=== PATIENT | female | born 1970 | race Caucasian/White ===

== ENCOUNTER 2025-09-15 11:33 | Observation (INO) | payer OTHER ==
--- NOTE | 2025-09-15 12:02 | ERPHSYRPT ---
- History of Present Illness Physician History: Hurts all over, onset of symptoms yesterday, she has difficulty in getting comfortable, she states she developed some cramping in her extremities when she gets that stretch out then she develops more cramping, she did have some recent changes in her diuretic, they apparently upped her dose and the also Added supplemental potassium, She is taking the diuretic because of edema, she has no history of any congestive heart failure, she denies any known history of any kidney problems, she does have a known history of COPD Severity: moderate Modifying Factors: Improves With: movement Allergies/Adverse Reactions: No Known Drug Allergies Allergy (Unverified 09/15/25 11:49) Home Medications: Furosemide 40 mg [Lasix 40 MG] 40 mg PO DAILY 09/15/25 [History] Insulin Lispro [Insulin Lispro Kwikpen U-100] See Rx Instructions .ROUTE .COMPLEX 09/15/25 [History] Losartan Potassium 50 mg [Cozaar 50 MG] 100 mg PO DAILY 09/15/25 [History] Metformin HCl 500 mg [Glucophage 500 MG] 500 mg PO TID 09/15/25 [History] Metoprolol Succinate 50 mg [Toprol Xl 50 MG] 50 mg PO HS 09/15/25 [History] Potassium Chloride [Klor-Con M20] 20 meq PO DAILY 09/15/25 [History] - Nursing Vital Signs Nursing Vital Signs: Initial Vital Signs Temperature 97.7 F 09/15/25 11:34 Pulse Rate 117 H 09/15/25 11:34 Respiratory Rate 24 09/15/25 11:34 Blood Pressure 120/72 09/15/25 11:34 O2 Sat by Pulse Oximetry 96 09/15/25 11:34 Pain Scale Pain Intensity [Generalized] 10 Pain Intensity 5 - Physical Exam General Appearance: no apparent distress, obese Eye Exam: PERRL/EOMI, eyes nml inspection Ears, Nose, Throat Exam: normal ENT inspection, TMs normal, pharynx normal, moist mucous membranes Neck Exam: normal inspection, non-tender, supple, full range of motion Respiratory Exam: normal breath sounds, lungs clear, No respiratory distress Cardiovascular Exam: regular rate/rhythm, normal heart sounds, normal peripheral pulses Gastrointestinal/Abdomen Exam: soft, normal bowel sounds, No tenderness, No mass Back Exam: normal inspection, normal range of motion, No CVA tenderness, No vertebral tenderness Extremity Exam: normal inspection, normal range of motion, pelvis stable Neurologic Exam: alert, oriented x 3, cooperative, normal mood/affect, nml cerebellar function, nml station & gait, sensation nml, No motor deficits Skin Exam: normal color, warm, dry, No rash Lymphatic Exam: No adenopathy Ordered Tests: Active Orders 24 hr Category Date Time Status Negative Turner STAT Care 09/15/25 12:02 Active IV Insertion STAT Care 09/15/25 12:01 Completed ABDOMEN AND PELVIS W/0 CONTRAS [CT] Stat Exams 09/15/25 13:56 Completed CHEST 1 VIEW (PORTABLE) Stat Exams 09/15/25 12:02 Taken CBC W DIFF Stat Lab 09/15/25 12:00 Completed CMP Stat Lab 09/15/25 12:00 Completed Lactic Acid Stat Lab 09/15/25 12:01 Completed MAGNESIUM Stat Lab 09/15/25 12:00 Completed NT PRO BNPII Stat Lab 09/15/25 12:00 Completed TROPONIN Q4H Lab 09/15/25 12:00 Completed TROPONIN Q4H Lab 09/15/25 18:00 Ordered TROPONIN Q4H Lab 09/15/25 22:00 Ordered UA W/RFX UR CULTURE Stat Lab 09/15/25 13:58 Ordered Medication Summary Discontinued Medications Generic Name Dose Route Start Last Admin Trade Name Freq PRN Reason Stop Dose Admin Sodium Chloride 500 mls @ 500 mls/hr 09/15/25 14:00 09/15/25 15:15 Sodium Chloride 0.9% 500 Ml IV 09/15/25 14:59 500 mls/hr .Q1H ONE Infusion Sodium Chloride Confirm 09/15/25 14:05 Sodium Chloride 0.9% 500 Ml Administered 09/15/25 14:06 Dose 500 mls @ ud IV .STK-MED ONE Morphine Sulfate 4 mg 09/15/25 12:19 09/15/25 12:24 Morphine Sulfate 4 Mg/Ml Injection IV 09/15/25 12:20 4 mg STAT ONE Administration Morphine Sulfate Confirm 09/15/25 12:24 Morphine Sulfate 4 Mg/Ml Injection Administered 09/15/25 12:25 Dose 4 mg .ROUTE .STK-MED ONE Ondansetron HCl 4 mg 09/15/25 12:20 09/15/25 12:24 Ondansetron Hcl 4 Mg/2 Ml Vial IV 09/15/25 12:21 4 mg STAT ONE Administration Ondansetron HCl Confirm 09/15/25 12:23 Ondansetron Hcl 4 Mg/2 Ml Vial Administered 09/15/25 12:24 Dose 4 mg .ROUTE .STK-MED ONE Lab/Rad Data: Laboratory Result Diagrams 09/15/25 12:00 09/15/25 12:00 Laboratory Results 09/15/25 09/15/25 09/15/25 Range/Units 14:13 12:01 12:00 WBC (3.98-10.04) x10^3/uL RBC (3.93-5.22) x10^6/uL Hgb (11.2-15.7) g/dL Hct (34.1-44.9) % MCV (79.4-94.8) fL MCH (25.6-32.2) pg MCHC (32.2-35.5) g/dL RDW (11.7-14.4) % Plt Count (182-369) x10^3/uL MPV (9.4-12.3) fL Gran % (34.0-71.1) % Immature Gran % (Auto) (0.001-0.429) % Nucleat RBC Rel Count (0.00-0.2) % Eos # (Auto) (0.04-0.36) x10^3/uL Immature Gran # (Auto) (0.001-0.031) x10^3u/L Absolute Lymphs (auto) (1.18-3.74) x10^3/uL Absolute Monos (auto) (0.24-0.86) x10^3/uL Absolute Nucleated RBC (0.00-0.012) x10^3u/L Lymphocytes % (19.3-51.7) % Monocytes % (4.7-12.5) % Eosinophils % (0.7-5.8) % Basophils % (0.1-1.2) % Absolute Granulocytes (1.56-6.13) x10^3/uL Basophils # (0.01-0.08) x10^3/uL Sodium (135-145) mmol/L Potassium (3.5-5.1) mmol/L Chloride (98-107) mmol/L Carbon Dioxide (22-30) mmol/L Anion Gap (5-15) MEQ/L BUN (7-17) mg/dL Creatinine (0.52-1.04) mg/dL Estimated GFR ML/MIN Glucose (74-106) mg/dL Lactic Acid 4.5 H (0.4-2.0) Calcium (8.4-10.2) mg/dL Magnesium (1.6-2.3) mg/dL Total Bilirubin (0.2-1.3) mg/dL AST (14-36) U/L ALT (0-35) U/L Alkaline Phosphatase (38-126) U/L Troponin I 0.028 (0.000-0.033) ng/mL NT-Pro-B Natriuret Pep 569 (<300) pg/mL Serum Total Protein (6.3-8.2) g/dL Albumin (3.5-5.0) g/dL Influenza Type A Ag NEGATIVE (NEGATIVE) Influenza Type B Ag NEGATIVE (NEGATIVE) RSV (PCR) NEGATIVE (NEGATIVE) SARS-CoV-2 (PCR) NEGATIVE (NEGATIVE) 09/15/25 09/15/25 09/15/25 Range/Units 12:00 12:00 12:00 WBC 16.9 H (3.98-10.04) x10^3/uL RBC 5.10 (3.93-5.22) x10^6/uL Hgb 14.1 (11.2-15.7) g/dL Hct 44.9 (34.1-44.9) % MCV 88.0 (79.4-94.8) fL MCH 27.6 (25.6-32.2) pg MCHC 31.4 L (32.2-35.5) g/dL RDW 13.9 (11.7-14.4) % Plt Count 364 (182-369) x10^3/uL MPV 9.9 (9.4-12.3) fL Gran % 73.4 H (34.0-71.1) % Immature Gran % (Auto) 0.9 H (0.001-0.429) % Nucleat RBC Rel Count 0.0 (0.00-0.2) % Eos # (Auto) 0.07 (0.04-0.36) x10^3/uL Immature Gran # (Auto) 0.15 H (0.001-0.031) x10^3u/L Absolute Lymphs (auto) 3.09 (1.18-3.74) x10^3/uL Absolute Monos (auto) 1.12 H (0.24-0.86) x10^3/uL Absolute Nucleated RBC 0.00 (0.00-0.012) x10^3u/L Lymphocytes % 18.2 L (19.3-51.7) % Monocytes % 6.6 (4.7-12.5) % Eosinophils % 0.4 L (0.7-5.8) % Basophils % 0.5 (0.1-1.2) % Absolute Granulocytes 12.42 H (1.56-6.13) x10^3/uL Basophils # 0.09 H (0.01-0.08) x10^3/uL Sodium 132 L (135-145) mmol/L Potassium 5.1 (3.5-5.1) mmol/L Chloride 92 L (98-107) mmol/L Carbon Dioxide 24 (22-30) mmol/L Anion Gap 20.7 H (5-15) MEQ/L BUN 29 H (7-17) mg/dL Creatinine 2.96 H (0.52-1.04) mg/dL Estimated GFR 18.3 ML/MIN Glucose 376 H (74-106) mg/dL Lactic Acid (0.4-2.0) Calcium 9.4 (8.4-10.2) mg/dL Magnesium 1.7 (1.6-2.3) mg/dL Total Bilirubin 0.40 (0.2-1.3) mg/dL AST 77 H (14-36) U/L ALT 45 H (0-35) U/L Alkaline Phosphatase 123 (38-126) U/L Troponin I (0.000-0.033) ng/mL NT-Pro-B Natriuret Pep (<300) pg/mL Serum Total Protein 8.7 H (6.3-8.2) g/dL Albumin 4.4 (3.5-5.0) g/dL Influenza Type A Ag (NEGATIVE) Influenza Type B Ag (NEGATIVE) RSV (PCR) (NEGATIVE) SARS-CoV-2 (PCR) (NEGATIVE) - Progress Progress: unchanged Progress Note: 09/15/25 14:33 Consult to hospitalist, discussed lab results including creatinine, hospitalist requested additional lab studies as well as CT abdomen/pelvis without contrast 09/15/25 15:38 Discussed results with hospitalist, patient be admitted - Departure Departure Disposition: In-patient Admission Clinical Impression: JESSICA (acute kidney injury) Condition: Stable Critical Care Time: No Referrals: JB MONACO [Primary Care Provider, [facility]] - Follow up/PCP as directed
[2025-09-15 12:13] LABS: BASOPHIL % 0.5 % (0.1-1.2); Basophil (Absolute #) 0.09 x10^3/uL (0.01-0.08); Eosinophil (Absolute #) 0.07 x10^3/uL (0.04-0.36); Hematocrit 44.9 % (34.1-44.9); Hemoglobin 14.1 g/dL (11.2-15.7); IMMATURE GRAN # 0.15 x10^3u/L (0.001-0.031); IMMATURE GRAN % 0.9 % (0.001-0.429); Lymphocyte (Absolute #) 3.09 x10^3/uL (1.18-3.74); Mean Corpuscular Hemoglobin 27.6 pg (25.6-32.2); Mean Corpuscular Hgb Concent. 31.4 g/dL (32.2-35.5); Monocyte (Absolute #) 1.12 x10^3/uL (0.24-0.86); NUCLEATED RBC # 0.00 x10^3u/L (0.00-0.012); NUCLEATED RBC % 0.0 % (0.00-0.2); Platelet Count 364 x10^3/uL (182-369); Red Blood Count 5.10 x10^6/uL (3.93-5.22); White Blood Count 16.9 x10^3/uL (3.98-10.04)
[2025-09-15] MEDS ORDERED: Zofran 4 MG/2 ML VIAL ONE (12:23)
[2025-09-15] MEDS: MORPHINE SULFATE 4 MG INJ IV ONE (12:24)
[2025-09-15] MEDS ORDERED: MORPHINE SULFATE 4 MG INJ ONE (12:24)
[2025-09-15] MEDS: Zofran 4 MG/2 ML VIAL IV ONE (12:24)
[2025-09-15 13:09] LABS: Calcium 9.4 mg/dL (8.4-10.2); Carbon Dioxide 24.0 mmol/L (22-30); Creatinine 1 2.96 mg/dL (0.52-1.04); EST GLOMERULAR FILTRATION RATE 18.3 ML/MIN; Glucose 376.0 mg/dL (74-106); Potassium 5.1 mmol/L (3.5-5.1); SGOT/AST 77.0 U/L (14-36); SGPT/ALT 45.0 U/L (0-35); Total Protein 8.7 g/dL (6.3-8.2)
[2025-09-15 14:28] LABS: NT PRO BNPII 569.0 pg/mL (<300); TROPONIN 0.028 ng/mL (0.000-0.033)
[2025-09-15 14:51] LABS: INFLUENZA A NEGATIVE (NEGATIVE); INFLUENZA B NEGATIVE (NEGATIVE); RESPIRATORY SYNCTIAL VIRUS NEGATIVE (NEGATIVE); SARS-CoV-2 Xpert Express NEGATIVE (NEGATIVE)
--- NOTE | 2025-09-15 15:28 | XRAY ---
CLINICAL HISTORY: renal failure COMPARISON: No prior studies available for comparison. TECHNIQUE: CT of the abdomen and pelvis was performed without contrast, using the following protocol: axial images, with reconstructed coronal and sagittal images. One of the following dose reduction techniques was utilized for this exam: automated exposure control, adjustment of the mA and/or kV according to patient size, and use of iterative reconstruction. FINDINGS: Abdomen: Liver: The liver is mildly enlarged, measuring approximately 17.7 cm in its craniocaudal dimension in the midclavicular line, and shows diffuse low density, suggesting steatosis. A subcapsular high-density area seen at segment IV measures about 21 x 22 mm in axial dimensions, which could represent focal fatty sparing that needs T1 in and out of phase MRI correlation. The hepatic biliary ducts are unremarkable. Gallbladder and Biliary System: The gallbladder is surgically removed with a clear operative bed. The common bile duct is normal in caliber without dilation. Pancreas: The pancreatic head, body, and tail are visualized and appear normal in size and density. No pancreatic masses or calcifications are noted. The pancreatic duct is not dilated. Spleen: The spleen is normal in size, shape, and density. No splenic lesions or masses are identified. Appendix: The appendix is normal in size, without timothy-appendiceal fat stranding and without an appendicolith. There is no evidence of appendiceal abscess or perforation. 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 Both kidneys are normal in size (both reaching 10.5 cm at their maximum length), shape, and position. Cortical thickness is within normal limits. No renal calculi or hydronephrosis are noted. The adrenal glands are unremarkable with no evidence of masses or hyperplasia. Pelvis: Urinary Bladder: The urinary bladder is normal in contour and wall thickness. No intraluminal lesions are identified. Uterus: The uterus is normal in size and contour. No masses or abnormal thickening are seen. Ovaries: The ovaries are not well visualized, but no gross abnormalities are noted. Vagina: The vagina is normal in contour and wall thickness. Cervix: There is no evidence of mass or abnormal thickening. Peritoneal and Retroperitoneal Structures: No free fluid or abnormal fluid collections are identified within the abdomen or pelvis. No enlarged lymphadenopathy is noted. Bowel: There is colonic diverticulosis with no signs of inflammation. The visualized bowel loops are normal in caliber and appearance. There is no evidence of bowel obstruction or wall thickening. Bones and Soft Tissues: The pelvic bones and soft tissues are unremarkable. No fractures or abnormal masses are identified. Lower lung cuts: There is a small atelectatic change at the lingula. IMPRESSION: 1. Mild fatty hepatomegaly with an area/patch of high density at segment IV, which could be focal fatty sparing; T1 in and out of phase MRI correlation is recommended. 2. Colonic diverticulosis with no signs of inflammation. Electronically Signed by: Valnetino King MD. (09/15/2025 15:26:02 EDT)
--- NOTE | 2025-09-15 16:34 | PCM.HP ---
<SAMINA PARNELL - Last Filed: 09/15/25 16:29> History of Present Illness - Chief Complaint Chief Complaint: JESSICA Date: 09/15/25 History of Present Illness: is a 55 year old female with a past medical history significant for chronic obstructive pulmonary disease (COPD), hypertension, and type 2 diabetes mellitus, who presented to the emergency department on September 15, 2025, with a two-day history of diffuse muscle cramps and aching involving her hands, legs, and feet. She denies fever, chills, chest pain, shortness of breath, nausea, vomiting, or urinary symptoms. She reports that her loop diuretic (Lasix) dose was recently increased from 20 mg once daily to 20 mg twice daily, and potassium supplementation was added following this change. Her symptoms began shortly after the medication adjustment. She reports taking the diuretic for lower extremity edema, not for heart failure. She has no known history of chronic kidney disease. She smokes approximately one pack of cigarettes per day and denies alcohol or illicit drug use. On presentation, she was afebrile, tachycardic at 117 bpm, and hemodynamically stable. Physical examination revealed 1+ pitting edema of both lower extremities without erythema, tenderness, or asymmetry. Laboratory studies demonstrated leukocytosis (WBC 16.9), hyponatremia with serum sodium reduction in the context of hyperglycemia (glucose 376 mg/dL), and an anion gap of 20.7, consistent with metabolic acidosis. BUN was 29 mg/dL and creatinine elevated to 2.96 mg/dL (baseline unknown), indicating acute kidney injury. Lactic acid was 4.5 mmol/L. AST was 77 U/L, ALT 45 U/L, with total protein 8.7 g/dL. Respiratory viral panel (COVID-19, Influenza A/B, RSV) was negative. CT abdomen and pelvis revealed mild fatty hepatomegaly with a high-density focus in hepatic segment 4, suggestive of focal fatty sparing; MRI with T1 in/out of phase was recommended for correlation. Colonic diverticulosis was noted without evidence of active inflammation. No acute intra-abdominal or infectious process was identified. In the emergency department, the patient received 500 mL of IV fluids, Zofran, and analgesics for symptom relief. She was admitted for management of acute kidney injury, metabolic derangements, and SIRS in the setting of recent diuretic escalation and dehydration. - Review of Systems Constitutional: No Symptoms Eyes: No Symptoms Ears, Nose, & Throat: No Symptoms Respiratory: Wheezing Cardiac: Edema (BLE 1+ Pitting edema) Abdominal/Gastrointestinal: No Symptoms Genitourinary Symptoms: No Symptoms Musculoskeletal: Other (: Reports generalized cramping in hands, legs, and feet. No joint pain, swelling, or focal weakness.) Skin: No Symptoms Neurological: No Symptoms Psychological: No Symptoms Endocrine: No Symptoms Hematologic/Lymphatic: No Symptoms Immunological/Allergic: No Symptoms Medications & Allergies Home Medications: Home Medication List Albuterol Common Canister [Ventolin Common Canister] 2 puff IH Q4HPRN PRN 09/15/25 [History Confirmed 09/15/25] Furosemide 40 mg [Lasix 40 MG] 40 mg PO BID 09/15/25 [History Confirmed 09/15/25] Insulin Lispro [Insulin Lispro Kwikpen U-100] See Rx Instructions .ROUTE .COMPLEX 09/15/25 [History Confirmed 09/15/25] Ipratropium/Albuterol Sulfate [Iprat-Albut 0.5-3(2.5) mg/3 ml] 3 ml IH Q6HPRN PRN 09/15/25 [History Confirmed 09/15/25] Losartan Potassium [Cozaar] 100 mg PO EVENING MEAL 09/15/25 [History Confirmed 09/15/25] Metformin HCl 500 mg [Glucophage 500 MG] 500 mg PO EVENING MEAL 09/15/25 [History Confirmed 09/15/25] Metoprolol Succinate 50 mg [Toprol Xl 50 MG] 50 mg PO HS 09/15/25 [History Confirmed 09/15/25] Potassium Chloride [Klor-Con M20] 20 meq PO BID 09/15/25 [History Confirmed 09/15/25] Allergies/Adverse Reactions: Allergies Allergy/AdvReac Type Severity Reaction Status Date / Time No Known Drug Allergies Allergy Unverified 09/15/25 11:49 - Past Medical History Past Medical History: Yes Cardiac History: Hypertension Respiratory History: COPD Endocrine Medical History: Diabetes Type I - Past Surgical History Past Surgical History: Yes GI Surgical History: Cholecystectomy, Hernia Repair Female Surgical History: Dilation & Curettage, Tubal Ligation Significant Family History: heart disease, cancer, diabetes, hypertension, other (COPD) - Social History Smoking Status: Current every day smoker Exposure to second hand smoke: Yes Alcohol: Rarely Drug Use: none - Social Determinants of Health Will the patient participate in the screening: Yes Do you worry about a steady place to live?: No Do you have any problems with any of the following?: No known problems In the past 12 months,have you had to go without utilities?: No Have you or anyone in your house had to go without enough: No Transportation Issues: No Has anyone in your support network made you feel unsafe?: No - Physical Exam Vital Signs: Vital Signs - 24 hr Temp Pulse Resp BP BP Pulse Ox 09/15/25 16:06 98.1 F 110 H 22 124/56 93 L 09/15/25 15:31 88 110/74 96 09/15/25 15:01 94 L 09/15/25 14:31 65 20 103/57 97 09/15/25 13:58 93 H 14 122/84 99 09/15/25 13:31 99/84 93 L 09/15/25 13:30 94 L 09/15/25 13:20 113 H 20 99/84 93 L 09/15/25 13:10 91 L 09/15/25 13:03 93 L 09/15/25 12:50 93 L 09/15/25 12:40 94 L 09/15/25 12:31 95 09/15/25 12:14 119 H 16 95/71 95 09/15/25 11:34 97.7 F 117 H 24 120/72 96 General Appearance: no apparent distress Neurologic Exam: alert, oriented x 3 Eye Exam: PERRL/EOMI Ears, Nose, Throat Exam: normal ENT inspection Neck Exam: normal inspection Respiratory Exam: wheezing Cardiovascular Exam: regular rate/rhythm, normal heart sounds Gastrointestinal/Abdomen Exam: soft, normal bowel sounds Pelvic Exam: not done Rectal Exam: deferred Back Exam: normal inspection Extremity Exam: normal inspection Skin Exam: normal color Results - Labs Lab/Micro Results: Lab Results-Last 24 Hours 09/15/25 09/15/25 09/15/25 Range/Units 12:00 12:00 12:00 WBC 16.9 H (3.98-10.04) x10^3/uL RBC 5.10 (3.93-5.22) x10^6/uL Hgb 14.1 (11.2-15.7) g/dL Hct 44.9 (34.1-44.9) % MCV 88.0 (79.4-94.8) fL MCH 27.6 (25.6-32.2) pg MCHC 31.4 L (32.2-35.5) g/dL RDW 13.9 (11.7-14.4) % Plt Count 364 (182-369) x10^3/uL MPV 9.9 (9.4-12.3) fL Gran % 73.4 H (34.0-71.1) % Immature Gran % (Auto) 0.9 H (0.001-0.429) % Nucleat RBC Rel Count 0.0 (0.00-0.2) % Eos # (Auto) 0.07 (0.04-0.36) x10^3/uL Immature Gran # (Auto) 0.15 H (0.001-0.031) x10^3u/L Absolute Lymphs (auto) 3.09 (1.18-3.74) x10^3/uL Absolute Monos (auto) 1.12 H (0.24-0.86) x10^3/uL Absolute Nucleated RBC 0.00 (0.00-0.012) x10^3u/L Lymphocytes % 18.2 L (19.3-51.7) % Monocytes % 6.6 (4.7-12.5) % Eosinophils % 0.4 L (0.7-5.8) % Basophils % 0.5 (0.1-1.2) % Absolute Granulocytes 12.42 H (1.56-6.13) x10^3/uL Basophils # 0.09 H (0.01-0.08) x10^3/uL Sodium 132 L (135-145) mmol/L Potassium 5.1 (3.5-5.1) mmol/L Chloride 92 L (98-107) mmol/L Carbon Dioxide 24 (22-30) mmol/L Anion Gap 20.7 H (5-15) MEQ/L BUN 29 H (7-17) mg/dL Creatinine 2.96 H (0.52-1.04) mg/dL Estimated GFR 18.3 ML/MIN Glucose 376 H (74-106) mg/dL Lactic Acid (0.4-2.0) Calcium 9.4 (8.4-10.2) mg/dL Magnesium 1.7 (1.6-2.3) mg/dL Total Bilirubin 0.40 (0.2-1.3) mg/dL AST 77 H (14-36) U/L ALT 45 H (0-35) U/L Alkaline Phosphatase 123 (38-126) U/L Troponin I (0.000-0.033) ng/mL NT-Pro-B Natriuret Pep (<300) pg/mL Serum Total Protein 8.7 H (6.3-8.2) g/dL Albumin 4.4 (3.5-5.0) g/dL Influenza Type A Ag (NEGATIVE) Influenza Type B Ag (NEGATIVE) RSV (PCR) (NEGATIVE) SARS-CoV-2 (PCR) (NEGATIVE) 09/15/25 09/15/25 09/15/25 Range/Units 12:00 12:01 14:13 WBC (3.98-10.04) x10^3/uL RBC (3.93-5.22) x10^6/uL Hgb (11.2-15.7) g/dL Hct (34.1-44.9) % MCV (79.4-94.8) fL MCH (25.6-32.2) pg MCHC (32.2-35.5) g/dL RDW (11.7-14.4) % Plt Count (182-369) x10^3/uL MPV (9.4-12.3) fL Gran % (34.0-71.1) % Immature Gran % (Auto) (0.001-0.429) % Nucleat RBC Rel Count (0.00-0.2) % Eos # (Auto) (0.04-0.36) x10^3/uL Immature Gran # (Auto) (0.001-0.031) x10^3u/L Absolute Lymphs (auto) (1.18-3.74) x10^3/uL Absolute Monos (auto) (0.24-0.86) x10^3/uL Absolute Nucleated RBC (0.00-0.012) x10^3u/L Lymphocytes % (19.3-51.7) % Monocytes % (4.7-12.5) % Eosinophils % (0.7-5.8) % Basophils % (0.1-1.2) % Absolute Granulocytes (1.56-6.13) x10^3/uL Basophils # (0.01-0.08) x10^3/uL Sodium (135-145) mmol/L Potassium (3.5-5.1) mmol/L Chloride (98-107) mmol/L Carbon Dioxide (22-30) mmol/L Anion Gap (5-15) MEQ/L BUN (7-17) mg/dL Creatinine (0.52-1.04) mg/dL Estimated GFR ML/MIN Glucose (74-106) mg/dL Lactic Acid 4.5 H (0.4-2.0) Calcium (8.4-10.2) mg/dL Magnesium (1.6-2.3) mg/dL Total Bilirubin (0.2-1.3) mg/dL AST (14-36) U/L ALT (0-35) U/L Alkaline Phosphatase (38-126) U/L Troponin I 0.028 (0.000-0.033) ng/mL NT-Pro-B Natriuret Pep 569 (<300) pg/mL Serum Total Protein (6.3-8.2) g/dL Albumin (3.5-5.0) g/dL Influenza Type A Ag NEGATIVE (NEGATIVE) Influenza Type B Ag NEGATIVE (NEGATIVE) RSV (PCR) NEGATIVE (NEGATIVE) SARS-CoV-2 (PCR) NEGATIVE (NEGATIVE) - Radiology Impressions Radiology Exams & Impressions: Radiology Procedures Category Date Time Status ABDOMEN AND PELVIS W/0 CONTRAS [CT] Stat Exams 09/15/25 13:56 Completed CHEST 1 VIEW (PORTABLE) Stat Exams 09/15/25 12:02 Taken Assessment/Plan (1) JESSICA (acute kidney injury) Current Visit: Yes Status: Acute Assessment & Plan: likely prerenal due to diuretic-associated volume depletion and dehydration -Hold diuretics and potassium supplementation -500ml fluid bolus given in ED- continue 1L fluid bolus- then 100ml/hr -trend BUN/Cr for improvement -Avoid nephrotoxins and adjust all renally cleared medications -Strict intake/output and daily weights -Consider nephrology consult if no improvement or worsening renal function within 2448 hours Code(s): N17.9 - ACUTE KIDNEY FAILURE, UNSPECIFIED (2) SIRS (systemic inflammatory response syndrome) Current Visit: Yes Status: Acute Assessment & Plan: tachycardia and leukocytosis, likely due to metabolic stress and dehydration rather than infection -Continue IV fluid resuscitation for perfusion support -Monitor vital signs, WBC, and temperature trends -Repeat lactate after resuscitation - received 500ml bolus in ED -No antibiotics at this time unless infection develops -Continue observation for possible progression to sepsis -UDS -UA pending collection -CXR pending final Read -CT abdomen and pelvis revealed mild fatty hepatomegaly with a high-density focu s in hepatic segment 4, suggestive of focal fatty sparing; MRI with T1 in/out of phase was recommended for correlation. Colonic diverticulosis was noted without evidence of active inflammation. No acute intra-abdominal or infectious process was identified. -Blood cultures x 2 -procal Code(s): R65.10 - SIRS OF NON-INFECTIOUS ORIGIN W/O ACUTE ORGAN DYSFUNCTION (3) High anion gap metabolic acidosis Current Visit: Yes Status: Acute Assessment & Plan: -Continue IV fluids and monitor acidbase status -Repeat lactate in 46 hours -Evaluate for ketosis given concurrent hyperglycemia Code(s): E87.29 - OTHER ACIDOSIS (4) Lactic acid acidosis Current Visit: Yes Status: Acute Assessment & Plan: -see above Code(s): E87.20 - ACIDOSIS, UNSPECIFIED (5) Hyponatremia Current Visit: Yes Status: Acute Assessment & Plan: pseudohyponatremia secondary to osmotic shift -IVF and glucose correction -Monitor sodium and glucose closely until normalization Code(s): E87.1 - HYPO-OSMOLALITY AND HYPONATREMIA (6) DMII (diabetes mellitus, type 2) Current Visit: Yes Status: Acute Assessment & Plan: -ADA -SSI -AIC -Hold metformin (7) COPD (chronic obstructive pulmonary disease) Current Visit: Yes Status: Acute Assessment & Plan: -Continue home inhalers (long-acting bronchodilator inhaled corticosteroid) -Encourage pulmonary hygiene and smoking cessation counseling -Monitor oxygen saturation and symptoms during admission -RA at baseline -RT eval -CXR pending (8) Smoker Current Visit: Yes Status: Acute Assessment & Plan: -1PPD smoker, advised cessation- nicotine patch Code(s): F17.200 - NICOTINE DEPENDENCE, UNSPECIFIED, UNCOMPLICATED (9) HTN (hypertension) Current Visit: Yes Status: Acute Assessment & Plan: -Continue home antihypertensive regimen if renal function allows -Hold agents that may worsen JESSICA until stable -Monitor blood pressure daily and reassess once volume status is corrected Code(s): I10 - ESSENTIAL (PRIMARY) HYPERTENSION (10) Transaminitis Current Visit: Yes Status: Acute Assessment & Plan: -Trend AST/ALT and liver function tests -Follow radiology recommendation for MRI with T1 in/out of phase to confirm fatty sparing in hepatic segment 4 as OP -Audio Engineer on avoidance of hepatotoxic agents (alcohol, NSAIDs, excess acetaminophen) -Hepatitis panel Code(s): R74.01 - ELEVATION OF LEVELS OF LIVER TRANSAMINASE LEVELS (11) Fatty liver Current Visit: Yes Status: Acute Assessment & Plan: -see above VTE: lovenox PPI: Protonix Dispo: 1-3 days Plan of care time spent > 45 mins Code(s): K76.0 - FATTY (CHANGE OF) LIVER, NOT ELSEWHERE CLASSIFIED Telemedicine Encounter - Telemedicine Encounter Telemedicine Encounter: "The entirety of this encounter was performed via Telemedicine" This visit was performed using real-time audio and video connection between my location and thepatients locationwith the assistance of a surrogateat the patients location. Written or verbal consent was obtained from the patient/guardian to perform this visit using[facility] technology. Any patient questions regarding the telemedicine interaction were answered. <CHUY JANG - Last Filed: 09/15/25 22:30> History of Present Illness - Chief Complaint History of Present Illness: is a 55 year old female. - Physical Exam Vital Signs: Vital Signs - 24 hr Temp Pulse Resp BP BP Pulse Ox 09/15/25 19:38 97.7 F 103 H 18 123/52 95 09/15/25 17:06 100 H 17 90 L 09/15/25 17:00 98.1 F 100 H 17 124/56 90 L 09/15/25 16:06 98.1 F 110 H 22 124/56 93 L 09/15/25 15:31 88 110/74 96 09/15/25 15:01 94 L 09/15/25 14:31 65 20 103/57 97 09/15/25 13:58 93 H 14 122/84 99 09/15/25 13:31 99/84 93 L 09/15/25 13:30 94 L 09/15/25 13:20 113 H 20 99/84 93 L 09/15/25 13:10 91 L 09/15/25 13:03 93 L 09/15/25 12:50 93 L 09/15/25 12:40 94 L 09/15/25 12:31 95 09/15/25 12:14 119 H 16 95/71 95 09/15/25 11:34 97.7 F 117 H 24 120/72 96 Results - Labs Lab/Micro Results: Lab Results-Last 24 Hours 09/15/25 09/15/25 09/15/25 Range/Units 12:00 12:00 12:00 WBC 16.9 H (3.98-10.04) x10^3/uL RBC 5.10 (3.93-5.22) x10^6/uL Hgb 14.1 (11.2-15.7) g/dL Hct 44.9 (34.1-44.9) % MCV 88.0 (79.4-94.8) fL MCH 27.6 (25.6-32.2) pg MCHC 31.4 L (32.2-35.5) g/dL RDW 13.9 (11.7-14.4) % Plt Count 364 (182-369) x10^3/uL MPV 9.9 (9.4-12.3) fL Gran % 73.4 H (34.0-71.1) % Immature Gran % (Auto) 0.9 H (0.001-0.429) % Nucleat RBC Rel Count 0.0 (0.00-0.2) % Eos # (Auto) 0.07 (0.04-0.36) x10^3/uL Immature Gran # (Auto) 0.15 H (0.001-0.031) x10^3u/L Absolute Lymphs (auto) 3.09 (1.18-3.74) x10^3/uL Absolute Monos (auto) 1.12 H (0.24-0.86) x10^3/uL Absolute Nucleated RBC 0.00 (0.00-0.012) x10^3u/L Lymphocytes % 18.2 L (19.3-51.7) % Monocytes % 6.6 (4.7-12.5) % Eosinophils % 0.4 L (0.7-5.8) % Basophils % 0.5 (0.1-1.2) % Absolute Granulocytes 12.42 H (1.56-6.13) x10^3/uL Basophils # 0.09 H (0.01-0.08) x10^3/uL Sodium 132 L (135-145) mmol/L Potassium 5.1 (3.5-5.1) mmol/L Chloride 92 L (98-107) mmol/L Carbon Dioxide 24 (22-30) mmol/L Anion Gap 20.7 H (5-15) MEQ/L BUN 29 H (7-17) mg/dL Creatinine 2.96 H (0.52-1.04) mg/dL Estimated GFR 18.3 ML/MIN Glucose 376 H (74-106) mg/dL POC Glucometer (74 to 106) mg/dL Hemoglobin A1c (4.5-6.0) % Lactic Acid (0.4-2.0) Calcium 9.4 (8.4-10.2) mg/dL Magnesium 1.7 (1.6-2.3) mg/dL Total Bilirubin 0.40 (0.2-1.3) mg/dL AST 77 H (14-36) U/L ALT 45 H (0-35) U/L Alkaline Phosphatase 123 (38-126) U/L Troponin I (0.000-0.033) ng/mL NT-Pro-B Natriuret Pep (<300) pg/mL Serum Total Protein 8.7 H (6.3-8.2) g/dL Albumin 4.4 (3.5-5.0) g/dL Procalcitonin (0.030-0.080) ng/mL Urine Color (Yellow) Urine Appearance (Clear) Urine pH (4.6-8.0) Ur Specific Lock[place] (1.005-1.030) Urine Protein (Negative) Urine Glucose (UA) (Negative) mg/dL Urine Ketones (Negative) Urine Blood (Negative) Urine Nitrite (Negative) Urine Bilirubin (Negative) Urine Urobilinogen (0.2) mg/dL Ur Leukocyte Esterase (Negative) U Hyaline Cast (Auto) (0-2) /LPF Urine Microscopic RBC (0-5) /HPF Urine Microscopic WBC (0-5) /HPF Ur Epithelial Cells (None Seen) /HPF Urine Bacteria (None Seen) /HPF Urine Culture Reflexed (NO) Urine Opiates Level (NEGATIVE) Ur Methadone (NEGATIVE) Urine Barbiturates (NEGATIVE) Ur Phencyclidine (PCP) (NEGATIVE) Urine Amphetamine (NEGATIVE) U Benzodiazepine Level (NEGATIVE) Urine Cocaine (NEGATIVE) Urine Marijuana (THC) (NEGATIVE) Influenza Type A Ag (NEGATIVE) Influenza Type B Ag (NEGATIVE) RSV (PCR) (NEGATIVE) SARS-CoV-2 (PCR) (NEGATIVE) 09/15/25 09/15/25 09/15/25 Range/Units 12:00 12:01 14:13 WBC (3.98-10.04) x10^3/uL RBC (3.93-5.22) x10^6/uL Hgb (11.2-15.7) g/dL Hct (34.1-44.9) % MCV (79.4-94.8) fL MCH (25.6-32.2) pg MCHC (32.2-35.5) g/dL RDW (11.7-14.4) % Plt Count (182-369) x10^3/uL MPV (9.4-12.3) fL Gran % (34.0-71.1) % Immature Gran % (Auto) (0.001-0.429) % Nucleat RBC Rel Count (0.00-0.2) % Eos # (Auto) (0.04-0.36) x10^3/uL Immature Gran # (Auto) (0.001-0.031) x10^3u/L Absolute Lymphs (auto) (1.18-3.74) x10^3/uL Absolute Monos (auto) (0.24-0.86) x10^3/uL Absolute Nucleated RBC (0.00-0.012) x10^3u/L Lymphocytes % (19.3-51.7) % Monocytes % (4.7-12.5) % Eosinophils % (0.7-5.8) % Basophils % (0.1-1.2) % Absolute Granulocytes (1.56-6.13) x10^3/uL Basophils # (0.01-0.08) x10^3/uL Sodium (135-145) mmol/L Potassium (3.5-5.1) mmol/L Chloride (98-107) mmol/L Carbon Dioxide (22-30) mmol/L Anion Gap (5-15) MEQ/L BUN (7-17) mg/dL Creatinine (0.52-1.04) mg/dL Estimated GFR ML/MIN Glucose (74-106) mg/dL POC Glucometer (74 to 106) mg/dL Hemoglobin A1c (4.5-6.0) % Lactic Acid 4.5 H (0.4-2.0) Calcium (8.4-10.2) mg/dL Magnesium (1.6-2.3) mg/dL Total Bilirubin (0.2-1.3) mg/dL AST (14-36) U/L ALT (0-35) U/L Alkaline Phosphatase (38-126) U/L Troponin I 0.028 (0.000-0.033) ng/mL NT-Pro-B Natriuret Pep 569 (<300) pg/mL Serum Total Protein (6.3-8.2) g/dL Albumin (3.5-5.0) g/dL Procalcitonin (0.030-0.080) ng/mL Urine Color (Yellow) Urine Appearance (Clear) Urine pH (4.6-8.0) Ur Specific [place] (1.005-1.030) Urine Protein (Negative) Urine Glucose (UA) (Negative) mg/dL Urine Ketones (Negative) Urine Blood (Negative) Urine Nitrite (Negative) Urine Bilirubin (Negative) Urine Urobilinogen (0.2) mg/dL Ur Leukocyte Esterase (Negative) U Hyaline Cast (Auto) (0-2) /LPF Urine Microscopic RBC (0-5) /HPF Urine Microscopic WBC (0-5) /HPF Ur Epithelial Cells (None Seen) /HPF Urine Bacteria (None Seen) /HPF Urine Culture Reflexed (NO) Urine Opiates Level (NEGATIVE) Ur Methadone (NEGATIVE) Urine Barbiturates (NEGATIVE) Ur Phencyclidine (PCP) (NEGATIVE) Urine Amphetamine (NEGATIVE) U Benzodiazepine Level (NEGATIVE) Urine Cocaine (NEGATIVE) Urine Marijuana (THC) (NEGATIVE) Influenza Type A Ag NEGATIVE (NEGATIVE) Influenza Type B Ag NEGATIVE (NEGATIVE) RSV (PCR) NEGATIVE (NEGATIVE) SARS-CoV-2 (PCR) NEGATIVE (NEGATIVE) 09/15/25 09/15/25 09/15/25 Range/Units 15:39 16:30 16:49 WBC (3.98-10.04) x10^3/uL RBC (3.93-5.22) x10^6/uL Hgb (11.2-15.7) g/dL Hct (34.1-44.9) % MCV (79.4-94.8) fL MCH (25.6-32.2) pg MCHC (32.2-35.5) g/dL RDW (11.7-14.4) % Plt Count (182-369) x10^3/uL MPV (9.4-12.3) fL Gran % (34.0-71.1) % Immature Gran % (Auto) (0.001-0.429) % Nucleat RBC Rel Count (0.00-0.2) % Eos # (Auto) (0.04-0.36) x10^3/uL Immature Gran # (Auto) (0.001-0.031) x10^3u/L Absolute Lymphs (auto) (1.18-3.74) x10^3/uL Absolute Monos (auto) (0.24-0.86) x10^3/uL Absolute Nucleated RBC (0.00-0.012) x10^3u/L Lymphocytes % (19.3-51.7) % Monocytes % (4.7-12.5) % Eosinophils % (0.7-5.8) % Basophils % (0.1-1.2) % Absolute Granulocytes (1.56-6.13) x10^3/uL Basophils # (0.01-0.08) x10^3/uL Sodium (135-145) mmol/L Potassium (3.5-5.1) mmol/L Chloride (98-107) mmol/L Carbon Dioxide (22-30) mmol/L Anion Gap (5-15) MEQ/L BUN (7-17) mg/dL Creatinine (0.52-1.04) mg/dL Estimated GFR ML/MIN Glucose (74-106) mg/dL POC Glucometer 290 H (74 to 106) mg/dL Hemoglobin A1c (4.5-6.0) % Lactic Acid 2.0 (0.4-2.0) Calcium (8.4-10.2) mg/dL Magnesium (1.6-2.3) mg/dL Total Bilirubin (0.2-1.3) mg/dL AST (14-36) U/L ALT (0-35) U/L Alkaline Phosphatase (38-126) U/L Troponin I (0.000-0.033) ng/mL NT-Pro-B Natriuret Pep (<300) pg/mL Serum Total Protein (6.3-8.2) g/dL Albumin (3.5-5.0) g/dL Procalcitonin (0.030-0.080) ng/mL Urine Color Yellow (Yellow) Urine Appearance Cloudy A (Clear) Urine pH 5.0 (4.6-8.0) Ur Specific [place] 1.010 (1.005-1.030) Urine Protein 30 (Negative) Urine Glucose (UA) Negative (Negative) mg/dL Urine Ketones Negative (Negative) Urine Blood Moderate A (Negative) Urine Nitrite Negative (Negative) Urine Bilirubin Negative (Negative) Urine Urobilinogen 0.2 (0.2) mg/dL Ur Leukocyte Esterase Trace A (Negative) U Hyaline Cast (Auto) 20-50 (0-2) /LPF Urine Microscopic RBC 51-100 A (0-5) /HPF Urine Microscopic WBC 3-5 (0-5) /HPF Ur Epithelial Cells Few (None Seen) /HPF Urine Bacteria None Seen (None Seen) /HPF Urine Culture Reflexed YES (NO) Urine Opiates Level (NEGATIVE) Ur Methadone (NEGATIVE) Urine Barbiturates (NEGATIVE) Ur Phencyclidine (PCP) (NEGATIVE) Urine Amphetamine (NEGATIVE) U Benzodiazepine Level (NEGATIVE) Urine Cocaine (NEGATIVE) Urine Marijuana (THC) (NEGATIVE) Influenza Type A Ag (NEGATIVE) Influenza Type B Ag (NEGATIVE) RSV (PCR) (NEGATIVE) SARS-CoV-2 (PCR) (NEGATIVE) 09/15/25 09/15/25 09/15/25 Range/Units 17:10 17:10 17:10 WBC (3.98-10.04) x10^3/uL RBC (3.93-5.22) x10^6/uL Hgb (11.2-15.7) g/dL Hct (34.1-44.9) % MCV (79.4-94.8) fL MCH (25.6-32.2) pg MCHC (32.2-35.5) g/dL RDW (11.7-14.4) % Plt Count (182-369) x10^3/uL MPV (9.4-12.3) fL Gran % (34.0-71.1) % Immature Gran % (Auto) (0.001-0.429) % Nucleat RBC Rel Count (0.00-0.2) % Eos # (Auto) (0.04-0.36) x10^3/uL Immature Gran # (Auto) (0.001-0.031) x10^3u/L Absolute Lymphs (auto) (1.18-3.74) x10^3/uL Absolute Monos (auto) (0.24-0.86) x10^3/uL Absolute Nucleated RBC (0.00-0.012) x10^3u/L Lymphocytes % (19.3-51.7) % Monocytes % (4.7-12.5) % Eosinophils % (0.7-5.8) % Basophils % (0.1-1.2) % Absolute Granulocytes (1.56-6.13) x10^3/uL Basophils # (0.01-0.08) x10^3/uL Sodium (135-145) mmol/L Potassium (3.5-5.1) mmol/L Chloride (98-107) mmol/L Carbon Dioxide (22-30) mmol/L Anion Gap (5-15) MEQ/L BUN (7-17) mg/dL Creatinine (0.52-1.04) mg/dL Estimated GFR ML/MIN Glucose (74-106) mg/dL POC Glucometer (74 to 106) mg/dL Hemoglobin A1c 9.19 H (4.5-6.0) % Lactic Acid (0.4-2.0) Calcium (8.4-10.2) mg/dL Magnesium (1.6-2.3) mg/dL Total Bilirubin (0.2-1.3) mg/dL AST (14-36) U/L ALT (0-35) U/L Alkaline Phosphatase (38-126) U/L Troponin I 0.024 (0.000-0.033) ng/mL NT-Pro-B Natriuret Pep (<300) pg/mL Serum Total Protein (6.3-8.2) g/dL Albumin (3.5-5.0) g/dL Procalcitonin 0.350 H (0.030-0.080) ng/mL Urine Color (Yellow) Urine Appearance (Clear) Urine pH (4.6-8.0) Ur Specific [place] (1.005-1.030) Urine Protein (Negative) Urine Glucose (UA) (Negative) mg/dL Urine Ketones (Negative) Urine Blood (Negative) Urine Nitrite (Negative) Urine Bilirubin (Negative) Urine Urobilinogen (0.2) mg/dL Ur Leukocyte Esterase (Negative) U Hyaline Cast (Auto) (0-2) /LPF Urine Microscopic RBC (0-5) /HPF Urine Microscopic WBC (0-5) /HPF Ur Epithelial Cells (None Seen) /HPF Urine Bacteria (None Seen) /HPF Urine Culture Reflexed (NO) Urine Opiates Level (NEGATIVE) Ur Methadone (NEGATIVE) Urine Barbiturates (NEGATIVE) Ur Phencyclidine (PCP) (NEGATIVE) Urine Amphetamine (NEGATIVE) U Benzodiazepine Level (NEGATIVE) Urine Cocaine (NEGATIVE) Urine Marijuana (THC) (NEGATIVE) Influenza Type A Ag (NEGATIVE) Influenza Type B Ag (NEGATIVE) RSV (PCR) (NEGATIVE) SARS-CoV-2 (PCR) (NEGATIVE) 09/15/25 09/15/25 09/15/25 Range/Units 19:10 20:43 20:43 WBC (3.98-10.04) x10^3/uL RBC (3.93-5.22) x10^6/uL Hgb (11.2-15.7) g/dL Hct (34.1-44.9) % MCV (79.4-94.8) fL MCH (25.6-32.2) pg MCHC (32.2-35.5) g/dL RDW (11.7-14.4) % Plt Count (182-369) x10^3/uL MPV (9.4-12.3) fL Gran % (34.0-71.1) % Immature Gran % (Auto) (0.001-0.429) % Nucleat RBC Rel Count (0.00-0.2) % Eos # (Auto) (0.04-0.36) x10^3/uL Immature Gran # (Auto) (0.001-0.031) x10^3u/L Absolute Lymphs (auto) (1.18-3.74) x10^3/uL Absolute Monos (auto) (0.24-0.86) x10^3/uL Absolute Nucleated RBC (0.00-0.012) x10^3u/L Lymphocytes % (19.3-51.7) % Monocytes % (4.7-12.5) % Eosinophils % (0.7-5.8) % Basophils % (0.1-1.2) % Absolute Granulocytes (1.56-6.13) x10^3/uL Basophils # (0.01-0.08) x10^3/uL Sodium 130 L (135-145) mmol/L Potassium 4.4 (3.5-5.1) mmol/L Chloride 94 L (98-107) mmol/L Carbon Dioxide 24 (22-30) mmol/L Anion Gap 16.6 H (5-15) MEQ/L BUN 32 H (7-17) mg/dL Creatinine 2.97 H (0.52-1.04) mg/dL Estimated GFR 18.2 ML/MIN Glucose 220 H (74-106) mg/dL POC Glucometer (74 to 106) mg/dL Hemoglobin A1c (4.5-6.0) % Lactic Acid (0.4-2.0) Calcium 8.5 (8.4-10.2) mg/dL Magnesium (1.6-2.3) mg/dL Total Bilirubin 0.40 (0.2-1.3) mg/dL AST 94 H (14-36) U/L ALT 50 H (0-35) U/L Alkaline Phosphatase 109 (38-126) U/L Troponin I 0.014 (0.000-0.033) ng/mL NT-Pro-B Natriuret Pep (<300) pg/mL Serum Total Protein 8.3 H (6.3-8.2) g/dL Albumin 4.2 (3.5-5.0) g/dL Procalcitonin (0.030-0.080) ng/mL Urine Color (Yellow) Urine Appearance (Clear) Urine pH (4.6-8.0) Ur Specific [place] (1.005-1.030) Urine Protein (Negative) Urine Glucose (UA) (Negative) mg/dL Urine Ketones (Negative) Urine Blood (Negative) Urine Nitrite (Negative) Urine Bilirubin (Negative) Urine Urobilinogen (0.2) mg/dL Ur Leukocyte Esterase (Negative) U Hyaline Cast (Auto) (0-2) /LPF Urine Microscopic RBC (0-5) /HPF Urine Microscopic WBC (0-5) /HPF Ur Epithelial Cells (None Seen) /HPF Urine Bacteria (None Seen) /HPF Urine Culture Reflexed (NO) Urine Opiates Level POSITIVE A (NEGATIVE) Ur Methadone NEGATIVE (NEGATIVE) Urine Barbiturates NEGATIVE (NEGATIVE) Ur Phencyclidine (PCP) NEGATIVE (NEGATIVE) Urine Amphetamine POSITIVE A (NEGATIVE) U Benzodiazepine Level NEGATIVE (NEGATIVE) Urine Cocaine NEGATIVE (NEGATIVE) Urine Marijuana (THC) NEGATIVE (NEGATIVE) Influenza Type A Ag (NEGATIVE) Influenza Type B Ag (NEGATIVE) RSV (PCR) (NEGATIVE) SARS-CoV-2 (PCR) (NEGATIVE) Accuchecks Date 09/15/25 Time 16:34 - Radiology Impressions Radiology Exams & Impressions: Radiology Procedures Category Date Time Status ABDOMEN AND PELVIS W/0 CONTRAS [CT] Stat Exams 09/15/25 13:56 Completed CHEST 1 VIEW (PORTABLE) Stat Exams 09/15/25 12:02 Completed ECHO W/2D AND DOPPLER [US] Routine Exams 09/15/25 16:47 Ordered - Other Procedures and Tests Respiratory Therapy 09/15/25 17:02 Respiratory Therapy Assessment DAILY 09/15/25 17:23 Smoking Cessation Education ONCE Telemedicine Encounter - Telemedicine Encounter Telemedicine Encounter: "The entirety of this encounter was performed via Telemedicine" This visit was performed using real-time audio and video connection between my location and thepatients locationwith the assistance of a surrogateat the patients location. Written or verbal consent was obtained from the patient/guardian to perform this visit using[facility] technology. Any patient questions regarding the telemedicine interaction were answered. ANA PAULA Encounter - ANA PAULA Encounter Attestation ANA PAULA Encounter Attestation: "IhavepersonallyseenandyessiDALY Estrada andhavediscussed pertinent aspects of their care with Samina Cunningham agree with the history, physical exam (any modifications based on my personal exam will be noted below), assessment, and plan as outlined in original note. Please see immediately below for my summary of findings and additional assessment and plan along with any meaningful corrections/explanations to the Subjective/Objective portions of the ANA PAULA note will be noted." My portion of the encounter took place via telemedicine. -Patient admitted with JESSICA with creatinine of 2.9 (normal renal function at baseline per patient report), likely related to recent increase in furosemide dosing to 20 mg BID from 20 daily. She denies history of heart failure with a recent normal echo (again, per patient report). There was no obstruction or hydronephrosis seen on the CT. Will challenge with fluids and monitor BMP and urine output. She also has elevated WBC and lactic acidosis but does not appear to have an obvious source of infection. Will cover with empiric ceftriaxone. She complains of severe muscle cramps and while they could be from dehydration, her urine also tested positive for amphetamines.
[2025-09-15] MEDS ORDERED: TYLENOL 325 MG PO PRN (16:48)
[2025-09-15] MEDS ORDERED: Zofran 4 MG/2 ML VIAL IV PRN (16:48)
[2025-09-15] MEDS ORDERED: VENTOLIN COMMON CANISTER IH PRN (16:57)
[2025-09-15] MEDS: HUMALOG SQ PRN (17:49)
[2025-09-15] MEDS: NICODERM CQ 14 MG TOP SCH (17:50)
--- NOTE | 2025-09-15 19:08 | XRAY ---
Indication: Short of breath. Comparison: None Portable chest demonstrates minimal lingula subsegmental atelectasis/scarring. Remaining heart and lungs unremarkable. Bony thorax intact. No acute findings.
[2025-09-15] MEDS: PHARMACY RENAL DOSING MC ONE (19:19)
[2025-09-15 19:27] LABS: Glucose, Urine Negative (Negative); Protein,Urine Dip 30 (Negative); RBC 51-100 /HPF (0-5)
[2025-09-15 19:31] LABS: Barbiturate,Urine NEGATIVE (NEGATIVE); Benzodiazepine,Urine NEGATIVE (NEGATIVE); Cocaine,Urine NEGATIVE (NEGATIVE); Methadone,Urine NEGATIVE (NEGATIVE); Opiate,Urine POSITIVE (NEGATIVE); PCP,Urine NEGATIVE (NEGATIVE); THC,Urine NEGATIVE (NEGATIVE)
[2025-09-15] MEDS: ROCEPHIN 1 GM / 100 ML NaCl 1 GM/100 ML IVPB IV SCH (19:50)
[2025-09-15] MEDS: Cyclobenzaprine 10 MG PO PRN (20:07)
[2025-09-15 20:19] LABS: Amphetamine,Urine POSITIVE (NEGATIVE)
[2025-09-15 21:11] LABS: Calcium 8.5 mg/dL (8.4-10.2); Carbon Dioxide 24.0 mmol/L (22-30); Creatinine 1 2.97 mg/dL (0.52-1.04); EST GLOMERULAR FILTRATION RATE 18.2 ML/MIN; Glucose 220.0 mg/dL (74-106); Potassium 4.4 mmol/L (3.5-5.1); SGOT/AST 94.0 U/L (14-36); SGPT/ALT 50.0 U/L (0-35); Total Protein 8.3 g/dL (6.3-8.2)
[2025-09-15] MEDS: HEPARIN 5000 UNITS/0.5 ML (HIGH RISK MED) SQ SCH (21:22)
[2025-09-15] MEDS: Toprol Xl 50 MG PO SCH (21:22)
[2025-09-15] MEDS ORDERED: NON-FORMULARY ITEM (Potassium Chloride [Klor-Con M20] 20 MEQ Tab.Er.Prt) PO SCH (22:00)
[2025-09-15] MEDS: DUONEB 0.5-3 MG/3 ml Neb IH PRN (23:31)
[2025-09-16 04:56] LABS: BASOPHIL % 0.5 % (0.1-1.2); Basophil (Absolute #) 0.04 x10^3/uL (0.01-0.08); Eosinophil (Absolute #) 0.31 x10^3/uL (0.04-0.36); Hematocrit 38.0 % (34.1-44.9); Hemoglobin 12.2 g/dL (11.2-15.7); IMMATURE GRAN # 0.03 x10^3u/L (0.001-0.031); IMMATURE GRAN % 0.3 % (0.001-0.429); Lymphocyte (Absolute #) 1.56 x10^3/uL (1.18-3.74); Mean Corpuscular Hemoglobin 27.9 pg (25.6-32.2); Mean Corpuscular Hgb Concent. 32.1 g/dL (32.2-35.5); Monocyte (Absolute #) 0.55 x10^3/uL (0.24-0.86); NUCLEATED RBC # 0.00 x10^3u/L (0.00-0.012); NUCLEATED RBC % 0.0 % (0.00-0.2); Platelet Count 283 x10^3/uL (182-369); Red Blood Count 4.38 x10^6/uL (3.93-5.22); White Blood Count 8.6 x10^3/uL (3.98-10.04)
[2025-09-16 05:34] LABS: Calcium 8.1 mg/dL (8.4-10.2); Carbon Dioxide 25.0 mmol/L (22-30); Creatinine 1 2.24 mg/dL (0.52-1.04); EST GLOMERULAR FILTRATION RATE 25.6 ML/MIN; Glucose 247.0 mg/dL (74-106); Potassium 4.3 mmol/L (3.5-5.1); SGOT/AST 85.0 U/L (14-36); SGPT/ALT 46.0 U/L (0-35); Total Protein 7.1 g/dL (6.3-8.2)
[2025-09-16] MEDS ORDERED: DUONEB 0.5-3 MG/3 ml Neb IH ONE (07:07)
[2025-09-16] MEDS ORDERED: Cyclobenzaprine 10 MG PO PRN (07:09)
[2025-09-16] MEDS: DUONEB 0.5-3 MG/3 ml Neb IH PRN (07:09)
[2025-09-16] MEDS ORDERED: PHARMACY DOSING REQUEST MC ONE (07:48)
[2025-09-16] MEDS ORDERED: Pain Relieving Rub TOP PRN (07:58)
[2025-09-16] MEDS: HUMALOG SQ SCH (08:19)
[2025-09-16] MEDS: Lantus Insulin SQ SCH (08:20)
--- NOTE | 2025-09-16 10:21 | PCM.DS ---
Discharge Summary Date of Admission: 09/15/25 16:02 Date of Discharge: 09/16/25 Admitting Physician: CHUY JANG MD Primary Care Provider: JB MONACO Allergies Allergies No Known Drug Allergies Allergy (Unverified 09/15/25 11:49) Hospital Summary - Hospital Course Hospital Course: is a 55-year-old female with a history of COPD, hypertension, and type 2 diabetes mellitus who presented on September 15, 2025, with a two-day history of diffuse muscle cramps and generalized myalgias following a recent increase in her furosemide dose from 20 mg once daily to 20 mg twice daily, along with initiation of potassium supplementation. She denied chest pain, dyspnea, gastrointestinal or urinary symptoms. On admission, she was tachycardic to 117 bpm and found to have an acute kidney injury (creatinine 2.96 mg/dL, baseline unknown), an anion gap metabolic acidosis (AG 20.7), elevated blood glucose (376 mg/dL), lactic acidosis (4.5 mmol/L), and leukocytosis (WBC 16.9). Sodium was low (corrected sodium 131 mmol/L), and A1c was elevated at 9.19%, consistent with poorly controlled diabetes. Imaging with CT abdomen/pelvis revealed fatty hepatomegaly with a high-density area in segment 4, suggestive of focal fatty sparing, for which an outpatient MRI was recommended. No evidence of intra- abdominal pathology or infection was found. She received IV fluids and empiric ceftriaxone for suspected UTI. Urine drug screen returned positive for opiates and amphetamines despite no prescribed use; the patient denied illicit drug use. Over the hospital course, creatinine improved to 2.24, white blood cell count normalized, and her anion gap closed. Liver enzymes showed mild improvement (AST 85, ALT 46), and heart rate returned to normal sinus rhythm in the 90s. Notably, her muscle cramping resolved by the time of discharge. Despite clinical recommendations for continued inpatient monitoring and pending labs including echocardiogram and cultures, the patient strongly insisted on discharge, expressing intent to leave against medical advice (AMA) if not formally discharged. Risks of early discharge were explained, including worsening renal function and need for follow-up of abnormal findings. She verbalized understanding and stated she would follow up with her primary care provider, Dr. Younger in [place], and arrange outpatient care this week. She was discharged home in stable condition with clear instructions to monitor for worsening symptoms and seek immediate medical attention as needed. - Vitals & Intake/Output Vital Signs: Vital Signs Temperature 97.9 F 09/16/25 07:23 Pulse Rate 99 H 09/16/25 07:23 Respiratory Rate 18 09/16/25 07:23 Blood Pressure 127/67 09/16/25 07:23 O2 Sat by Pulse Oximetry 94 L 09/16/25 07:23 Intake & Output: Intake & Output 09/13/25 09/14/25 09/15/25 09/16/25 11:59 11:59 11:59 11:59 Intake Total 4631 Output Total 3475 Balance 1156 Weight 144.242 kg 146.5 kg - Lab Result Diagrams: 09/16/25 04:14 09/16/25 04:14 Lab Results-Last 24 Hrs: Lab Results-Last 24 Hours 09/15/25 09/15/25 09/15/25 Range/Units 12:00 12:00 12:00 WBC 16.9 H (3.98-10.04) x10^3/uL RBC 5.10 (3.93-5.22) x10^6/uL Hgb 14.1 (11.2-15.7) g/dL Hct 44.9 (34.1-44.9) % MCV 88.0 (79.4-94.8) fL MCH 27.6 (25.6-32.2) pg MCHC 31.4 L (32.2-35.5) g/dL RDW 13.9 (11.7-14.4) % Plt Count 364 (182-369) x10^3/uL MPV 9.9 (9.4-12.3) fL Gran % 73.4 H (34.0-71.1) % Immature Gran % (Auto) 0.9 H (0.001-0.429) % Nucleat RBC Rel Count 0.0 (0.00-0.2) % Eos # (Auto) 0.07 (0.04-0.36) x10^3/uL Immature Gran # (Auto) 0.15 H (0.001-0.031) x10^3u/L Absolute Lymphs (auto) 3.09 (1.18-3.74) x10^3/uL Absolute Monos (auto) 1.12 H (0.24-0.86) x10^3/uL Absolute Nucleated RBC 0.00 (0.00-0.012) x10^3u/L Lymphocytes % 18.2 L (19.3-51.7) % Monocytes % 6.6 (4.7-12.5) % Eosinophils % 0.4 L (0.7-5.8) % Basophils % 0.5 (0.1-1.2) % Absolute Granulocytes 12.42 H (1.56-6.13) x10^3/uL Basophils # 0.09 H (0.01-0.08) x10^3/uL Sodium 132 L (135-145) mmol/L Potassium 5.1 (3.5-5.1) mmol/L Chloride 92 L (98-107) mmol/L Carbon Dioxide 24 (22-30) mmol/L Anion Gap 20.7 H (5-15) MEQ/L BUN 29 H (7-17) mg/dL Creatinine 2.96 H (0.52-1.04) mg/dL Estimated GFR 18.3 ML/MIN Glucose 376 H (74-106) mg/dL POC Glucometer (74 to 106) mg/dL Hemoglobin A1c (4.5-6.0) % Lactic Acid (0.4-2.0) Calcium 9.4 (8.4-10.2) mg/dL Magnesium 1.7 (1.6-2.3) mg/dL Total Bilirubin 0.40 (0.2-1.3) mg/dL AST 77 H (14-36) U/L ALT 45 H (0-35) U/L Alkaline Phosphatase 123 (38-126) U/L Troponin I (0.000-0.033) ng/mL NT-Pro-B Natriuret Pep (<300) pg/mL Serum Total Protein 8.7 H (6.3-8.2) g/dL Albumin 4.4 (3.5-5.0) g/dL Procalcitonin (0.030-0.080) ng/mL Urine Color (Yellow) Urine Appearance (Clear) Urine pH (4.6-8.0) Ur Specific [place] (1.005-1.030) Urine Protein (Negative) Urine Glucose (UA) (Negative) mg/dL Urine Ketones (Negative) Urine Blood (Negative) Urine Nitrite (Negative) Urine Bilirubin (Negative) Urine Urobilinogen (0.2) mg/dL Ur Leukocyte Esterase (Negative) U Hyaline Cast (Auto) (0-2) /LPF Urine Microscopic RBC (0-5) /HPF Urine Microscopic WBC (0-5) /HPF Ur Epithelial Cells (None Seen) /HPF Urine Bacteria (None Seen) /HPF Urine Culture Reflexed (NO) Urine Opiates Level (NEGATIVE) Ur Methadone (NEGATIVE) Urine Barbiturates (NEGATIVE) Ur Phencyclidine (PCP) (NEGATIVE) Urine Amphetamine (NEGATIVE) U Benzodiazepine Level (NEGATIVE) Urine Cocaine (NEGATIVE) Urine Marijuana (THC) (NEGATIVE) Influenza Type A Ag (NEGATIVE) Influenza Type B Ag (NEGATIVE) RSV (PCR) (NEGATIVE) SARS-CoV-2 (PCR) (NEGATIVE) 09/15/25 09/15/25 09/15/25 Range/Units 12:00 12:01 14:13 WBC (3.98-10.04) x10^3/uL RBC (3.93-5.22) x10^6/uL Hgb (11.2-15.7) g/dL Hct (34.1-44.9) % MCV (79.4-94.8) fL MCH (25.6-32.2) pg MCHC (32.2-35.5) g/dL RDW (11.7-14.4) % Plt Count (182-369) x10^3/uL MPV (9.4-12.3) fL Gran % (34.0-71.1) % Immature Gran % (Auto) (0.001-0.429) % Nucleat RBC Rel Count (0.00-0.2) % Eos # (Auto) (0.04-0.36) x10^3/uL Immature Gran # (Auto) (0.001-0.031) x10^3u/L Absolute Lymphs (auto) (1.18-3.74) x10^3/uL Absolute Monos (auto) (0.24-0.86) x10^3/uL Absolute Nucleated RBC (0.00-0.012) x10^3u/L Lymphocytes % (19.3-51.7) % Monocytes % (4.7-12.5) % Eosinophils % (0.7-5.8) % Basophils % (0.1-1.2) % Absolute Granulocytes (1.56-6.13) x10^3/uL Basophils # (0.01-0.08) x10^3/uL Sodium (135-145) mmol/L Potassium (3.5-5.1) mmol/L Chloride (98-107) mmol/L Carbon Dioxide (22-30) mmol/L Anion Gap (5-15) MEQ/L BUN (7-17) mg/dL Creatinine (0.52-1.04) mg/dL Estimated GFR ML/MIN Glucose (74-106) mg/dL POC Glucometer (74 to 106) mg/dL Hemoglobin A1c (4.5-6.0) % Lactic Acid 4.5 H (0.4-2.0) Calcium (8.4-10.2) mg/dL Magnesium (1.6-2.3) mg/dL Total Bilirubin (0.2-1.3) mg/dL AST (14-36) U/L ALT (0-35) U/L Alkaline Phosphatase (38-126) U/L Troponin I 0.028 (0.000-0.033) ng/mL NT-Pro-B Natriuret Pep 569 (<300) pg/mL Serum Total Protein (6.3-8.2) g/dL Albumin (3.5-5.0) g/dL Procalcitonin (0.030-0.080) ng/mL Urine Color (Yellow) Urine Appearance (Clear) Urine pH (4.6-8.0) Ur Specific [place] (1.005-1.030) Urine Protein (Negative) Urine Glucose (UA) (Negative) mg/dL Urine Ketones (Negative) Urine Blood (Negative) Urine Nitrite (Negative) Urine Bilirubin (Negative) Urine Urobilinogen (0.2) mg/dL Ur Leukocyte Esterase (Negative) U Hyaline Cast (Auto) (0-2) /LPF Urine Microscopic RBC (0-5) /HPF Urine Microscopic WBC (0-5) /HPF Ur Epithelial Cells (None Seen) /HPF Urine Bacteria (None Seen) /HPF Urine Culture Reflexed (NO) Urine Opiates Level (NEGATIVE) Ur Methadone (NEGATIVE) Urine Barbiturates (NEGATIVE) Ur Phencyclidine (PCP) (NEGATIVE) Urine Amphetamine (NEGATIVE) U Benzodiazepine Level (NEGATIVE) Urine Cocaine (NEGATIVE) Urine Marijuana (THC) (NEGATIVE) Influenza Type A Ag NEGATIVE (NEGATIVE) Influenza Type B Ag NEGATIVE (NEGATIVE) RSV (PCR) NEGATIVE (NEGATIVE) SARS-CoV-2 (PCR) NEGATIVE (NEGATIVE) 09/15/25 09/15/25 09/15/25 Range/Units 15:39 16:30 16:49 WBC (3.98-10.04) x10^3/uL RBC (3.93-5.22) x10^6/uL Hgb (11.2-15.7) g/dL Hct (34.1-44.9) % MCV (79.4-94.8) fL MCH (25.6-32.2) pg MCHC (32.2-35.5) g/dL RDW (11.7-14.4) % Plt Count (182-369) x10^3/uL MPV (9.4-12.3) fL Gran % (34.0-71.1) % Immature Gran % (Auto) (0.001-0.429) % Nucleat RBC Rel Count (0.00-0.2) % Eos # (Auto) (0.04-0.36) x10^3/uL Immature Gran # (Auto) (0.001-0.031) x10^3u/L Absolute Lymphs (auto) (1.18-3.74) x10^3/uL Absolute Monos (auto) (0.24-0.86) x10^3/uL Absolute Nucleated RBC (0.00-0.012) x10^3u/L Lymphocytes % (19.3-51.7) % Monocytes % (4.7-12.5) % Eosinophils % (0.7-5.8) % Basophils % (0.1-1.2) % Absolute Granulocytes (1.56-6.13) x10^3/uL Basophils # (0.01-0.08) x10^3/uL Sodium (135-145) mmol/L Potassium (3.5-5.1) mmol/L Chloride (98-107) mmol/L Carbon Dioxide (22-30) mmol/L Anion Gap (5-15) MEQ/L BUN (7-17) mg/dL Creatinine (0.52-1.04) mg/dL Estimated GFR ML/MIN Glucose (74-106) mg/dL POC Glucometer 290 H (74 to 106) mg/dL Hemoglobin A1c (4.5-6.0) % Lactic Acid 2.0 (0.4-2.0) Calcium (8.4-10.2) mg/dL Magnesium (1.6-2.3) mg/dL Total Bilirubin (0.2-1.3) mg/dL AST (14-36) U/L ALT (0-35) U/L Alkaline Phosphatase (38-126) U/L Troponin I (0.000-0.033) ng/mL NT-Pro-B Natriuret Pep (<300) pg/mL Serum Total Protein (6.3-8.2) g/dL Albumin (3.5-5.0) g/dL Procalcitonin (0.030-0.080) ng/mL Urine Color Yellow (Yellow) Urine Appearance Cloudy A (Clear) Urine pH 5.0 (4.6-8.0) Ur Specific [place] 1.010 (1.005-1.030) Urine Protein 30 (Negative) Urine Glucose (UA) Negative (Negative) mg/dL Urine Ketones Negative (Negative) Urine Blood Moderate A (Negative) Urine Nitrite Negative (Negative) Urine Bilirubin Negative (Negative) Urine Urobilinogen 0.2 (0.2) mg/dL Ur Leukocyte Esterase Trace A (Negative) U Hyaline Cast (Auto) 20-50 (0-2) /LPF Urine Microscopic RBC 51-100 A (0-5) /HPF Urine Microscopic WBC 3-5 (0-5) /HPF Ur Epithelial Cells Few (None Seen) /HPF Urine Bacteria None Seen (None Seen) /HPF Urine Culture Reflexed YES (NO) Urine Opiates Level (NEGATIVE) Ur Methadone (NEGATIVE) Urine Barbiturates (NEGATIVE) Ur Phencyclidine (PCP) (NEGATIVE) Urine Amphetamine (NEGATIVE) U Benzodiazepine Level (NEGATIVE) Urine Cocaine (NEGATIVE) Urine Marijuana (THC) (NEGATIVE) Influenza Type A Ag (NEGATIVE) Influenza Type B Ag (NEGATIVE) RSV (PCR) (NEGATIVE) SARS-CoV-2 (PCR) (NEGATIVE) 09/15/25 09/15/25 09/15/25 Range/Units 17:10 17:10 17:10 WBC (3.98-10.04) x10^3/uL RBC (3.93-5.22) x10^6/uL Hgb (11.2-15.7) g/dL Hct (34.1-44.9) % MCV (79.4-94.8) fL MCH (25.6-32.2) pg MCHC (32.2-35.5) g/dL RDW (11.7-14.4) % Plt Count (182-369) x10^3/uL MPV (9.4-12.3) fL Gran % (34.0-71.1) % Immature Gran % (Auto) (0.001-0.429) % Nucleat RBC Rel Count (0.00-0.2) % Eos # (Auto) (0.04-0.36) x10^3/uL Immature Gran # (Auto) (0.001-0.031) x10^3u/L Absolute Lymphs (auto) (1.18-3.74) x10^3/uL Absolute Monos (auto) (0.24-0.86) x10^3/uL Absolute Nucleated RBC (0.00-0.012) x10^3u/L Lymphocytes % (19.3-51.7) % Monocytes % (4.7-12.5) % Eosinophils % (0.7-5.8) % Basophils % (0.1-1.2) % Absolute Granulocytes (1.56-6.13) x10^3/uL Basophils # (0.01-0.08) x10^3/uL Sodium (135-145) mmol/L Potassium (3.5-5.1) mmol/L Chloride (98-107) mmol/L Carbon Dioxide (22-30) mmol/L Anion Gap (5-15) MEQ/L BUN (7-17) mg/dL Creatinine (0.52-1.04) mg/dL Estimated GFR ML/MIN Glucose (74-106) mg/dL POC Glucometer (74 to 106) mg/dL Hemoglobin A1c 9.19 H (4.5-6.0) % Lactic Acid (0.4-2.0) Calcium (8.4-10.2) mg/dL Magnesium (1.6-2.3) mg/dL Total Bilirubin (0.2-1.3) mg/dL AST (14-36) U/L ALT (0-35) U/L Alkaline Phosphatase (38-126) U/L Troponin I 0.024 (0.000-0.033) ng/mL NT-Pro-B Natriuret Pep (<300) pg/mL Serum Total Protein (6.3-8.2) g/dL Albumin (3.5-5.0) g/dL Procalcitonin 0.350 H (0.030-0.080) ng/mL Urine Color (Yellow) Urine Appearance (Clear) Urine pH (4.6-8.0) Ur Specific [place] (1.005-1.030) Urine Protein (Negative) Urine Glucose (UA) (Negative) mg/dL Urine Ketones (Negative) Urine Blood (Negative) Urine Nitrite (Negative) Urine Bilirubin (Negative) Urine Urobilinogen (0.2) mg/dL Ur Leukocyte Esterase (Negative) U Hyaline Cast (Auto) (0-2) /LPF Urine Microscopic RBC (0-5) /HPF Urine Microscopic WBC (0-5) /HPF Ur Epithelial Cells (None Seen) /HPF Urine Bacteria (None Seen) /HPF Urine Culture Reflexed (NO) Urine Opiates Level (NEGATIVE) Ur Methadone (NEGATIVE) Urine Barbiturates (NEGATIVE) Ur Phencyclidine (PCP) (NEGATIVE) Urine Amphetamine (NEGATIVE) U Benzodiazepine Level (NEGATIVE) Urine Cocaine (NEGATIVE) Urine Marijuana (THC) (NEGATIVE) Influenza Type A Ag (NEGATIVE) Influenza Type B Ag (NEGATIVE) RSV (PCR) (NEGATIVE) SARS-CoV-2 (PCR) (NEGATIVE) 09/15/25 09/15/25 09/15/25 Range/Units 19:10 20:43 20:43 WBC (3.98-10.04) x10^3/uL RBC (3.93-5.22) x10^6/uL Hgb (11.2-15.7) g/dL Hct (34.1-44.9) % MCV (79.4-94.8) fL MCH (25.6-32.2) pg MCHC (32.2-35.5) g/dL RDW (11.7-14.4) % Plt Count (182-369) x10^3/uL MPV (9.4-12.3) fL Gran % (34.0-71.1) % Immature Gran % (Auto) (0.001-0.429) % Nucleat RBC Rel Count (0.00-0.2) % Eos # (Auto) (0.04-0.36) x10^3/uL Immature Gran # (Auto) (0.001-0.031) x10^3u/L Absolute Lymphs (auto) (1.18-3.74) x10^3/uL Absolute Monos (auto) (0.24-0.86) x10^3/uL Absolute Nucleated RBC (0.00-0.012) x10^3u/L Lymphocytes % (19.3-51.7) % Monocytes % (4.7-12.5) % Eosinophils % (0.7-5.8) % Basophils % (0.1-1.2) % Absolute Granulocytes (1.56-6.13) x10^3/uL Basophils # (0.01-0.08) x10^3/uL Sodium 130 L (135-145) mmol/L Potassium 4.4 (3.5-5.1) mmol/L Chloride 94 L (98-107) mmol/L Carbon Dioxide 24 (22-30) mmol/L Anion Gap 16.6 H (5-15) MEQ/L BUN 32 H (7-17) mg/dL Creatinine 2.97 H (0.52-1.04) mg/dL Estimated GFR 18.2 ML/MIN Glucose 220 H (74-106) mg/dL POC Glucometer (74 to 106) mg/dL Hemoglobin A1c (4.5-6.0) % Lactic Acid (0.4-2.0) Calcium 8.5 (8.4-10.2) mg/dL Magnesium (1.6-2.3) mg/dL Total Bilirubin 0.40 (0.2-1.3) mg/dL AST 94 H (14-36) U/L ALT 50 H (0-35) U/L Alkaline Phosphatase 109 (38-126) U/L Troponin I 0.014 (0.000-0.033) ng/mL NT-Pro-B Natriuret Pep (<300) pg/mL Serum Total Protein 8.3 H (6.3-8.2) g/dL Albumin 4.2 (3.5-5.0) g/dL Procalcitonin (0.030-0.080) ng/mL Urine Color (Yellow) Urine Appearance (Clear) Urine pH (4.6-8.0) Ur Specific [place] (1.005-1.030) Urine Protein (Negative) Urine Glucose (UA) (Negative) mg/dL Urine Ketones (Negative) Urine Blood (Negative) Urine Nitrite (Negative) Urine Bilirubin (Negative) Urine Urobilinogen (0.2) mg/dL Ur Leukocyte Esterase (Negative) U Hyaline Cast (Auto) (0-2) /LPF Urine Microscopic RBC (0-5) /HPF Urine Microscopic WBC (0-5) /HPF Ur Epithelial Cells (None Seen) /HPF Urine Bacteria (None Seen) /HPF Urine Culture Reflexed (NO) Urine Opiates Level POSITIVE A (NEGATIVE) Ur Methadone NEGATIVE (NEGATIVE) Urine Barbiturates NEGATIVE (NEGATIVE) Ur Phencyclidine (PCP) NEGATIVE (NEGATIVE) Urine Amphetamine POSITIVE A (NEGATIVE) U Benzodiazepine Level NEGATIVE (NEGATIVE) Urine Cocaine NEGATIVE (NEGATIVE) Urine Marijuana (THC) NEGATIVE (NEGATIVE) Influenza Type A Ag (NEGATIVE) Influenza Type B Ag (NEGATIVE) RSV (PCR) (NEGATIVE) SARS-CoV-2 (PCR) (NEGATIVE) 09/16/25 09/16/25 09/16/25 Range/Units 04:14 04:14 07:01 WBC 8.6 (3.98-10.04) x10^3/uL RBC 4.38 (3.93-5.22) x10^6/uL Hgb 12.2 (11.2-15.7) g/dL Hct 38.0 (34.1-44.9) % MCV 86.8 (79.4-94.8) fL MCH 27.9 (25.6-32.2) pg MCHC 32.1 L (32.2-35.5) g/dL RDW 14.4 (11.7-14.4) % Plt Count 283 (182-369) x10^3/uL MPV 10.2 (9.4-12.3) fL Gran % 71.1 (34.0-71.1) % Immature Gran % (Auto) 0.3 (0.001-0.429) % Nucleat RBC Rel Count 0.0 (0.00-0.2) % Eos # (Auto) 0.31 (0.04-0.36) x10^3/uL Immature Gran # (Auto) 0.03 (0.001-0.031) x10^3u/L Absolute Lymphs (auto) 1.56 (1.18-3.74) x10^3/uL Absolute Monos (auto) 0.55 (0.24-0.86) x10^3/uL Absolute Nucleated RBC 0.00 (0.00-0.012) x10^3u/L Lymphocytes % 18.1 L (19.3-51.7) % Monocytes % 6.4 (4.7-12.5) % Eosinophils % 3.6 (0.7-5.8) % Basophils % 0.5 (0.1-1.2) % Absolute Granulocytes 6.15 H (1.56-6.13) x10^3/uL Basophils # 0.04 (0.01-0.08) x10^3/uL Sodium 129 L (135-145) mmol/L Potassium 4.3 (3.5-5.1) mmol/L Chloride 96 L (98-107) mmol/L Carbon Dioxide 25 (22-30) mmol/L Anion Gap 12.2 (5-15) MEQ/L BUN 33 H (7-17) mg/dL Creatinine 2.24 H (0.52-1.04) mg/dL Estimated GFR 25.6 ML/MIN Glucose 247 H (74-106) mg/dL POC Glucometer 252 H (74 to 106) mg/dL Hemoglobin A1c (4.5-6.0) % Lactic Acid (0.4-2.0) Calcium 8.1 L (8.4-10.2) mg/dL Magnesium (1.6-2.3) mg/dL Total Bilirubin 0.30 (0.2-1.3) mg/dL AST 85 H (14-36) U/L ALT 46 H (0-35) U/L Alkaline Phosphatase 108 (38-126) U/L Troponin I (0.000-0.033) ng/mL NT-Pro-B Natriuret Pep (<300) pg/mL Serum Total Protein 7.1 (6.3-8.2) g/dL Albumin 3.7 (3.5-5.0) g/dL Procalcitonin (0.030-0.080) ng/mL Urine Color (Yellow) Urine Appearance (Clear) Urine pH (4.6-8.0) Ur Specific [place] (1.005-1.030) Urine Protein (Negative) Urine Glucose (UA) (Negative) mg/dL Urine Ketones (Negative) Urine Blood (Negative) Urine Nitrite (Negative) Urine Bilirubin (Negative) Urine Urobilinogen (0.2) mg/dL Ur Leukocyte Esterase (Negative) U Hyaline Cast (Auto) (0-2) /LPF Urine Microscopic RBC (0-5) /HPF Urine Microscopic WBC (0-5) /HPF Ur Epithelial Cells (None Seen) /HPF Urine Bacteria (None Seen) /HPF Urine Culture Reflexed (NO) Urine Opiates Level (NEGATIVE) Ur Methadone (NEGATIVE) Urine Barbiturates (NEGATIVE) Ur Phencyclidine (PCP) (NEGATIVE) Urine Amphetamine (NEGATIVE) U Benzodiazepine Level (NEGATIVE) Urine Cocaine (NEGATIVE) Urine Marijuana (THC) (NEGATIVE) Influenza Type A Ag (NEGATIVE) Influenza Type B Ag (NEGATIVE) RSV (PCR) (NEGATIVE) SARS-CoV-2 (PCR) (NEGATIVE) Micro Results-Entire Visit: Accuchecks Date 09/16/25 Date 09/15/25 Time 07:22 Time 16:34 - Radiology Exams Ordered Rad Exams-Entire Visit: Radiology Procedures Category Date Time Status ABDOMEN AND PELVIS W/0 CONTRAS [CT] Stat Exams 09/15/25 13:56 Completed CHEST 1 VIEW (PORTABLE) Stat Exams 09/15/25 12:02 Completed ECHO W/2D AND DOPPLER [US] Routine Exams 09/16/25 07:51 Ordered - Procedures and Test Procedures and Tests throughout Hospitalization: Therapy Orders & Screens 09/15/25 16:46 Respiratory Therapy Consult ONCE Comment: Reason For Exam: Diagnosis: JESSICA 09/15/25 17:02 Respiratory Therapy Assessment DAILY Comment: Diagnosis: JESSICA 09/15/25 17:23 OT Screen per Nursing Assess ONCE Comment: Protocol Order Physician Instructions: Greater than 3 points order OT Admission Screening Reason For Exam: Triggered on Admission Diagnosis: JESSICA Open Wound/Cellutlitis/Pressure Ulcers: No Acute Fx/ORIF/Change in wt bearing status: No Severe MUSCULOSKELETAL pain: Yes: with spasms ADL Dysfunction: No Acute CVA w/Hemiparesis/Hemiplegia: No Decreased Functional Mobility/Strength: No Sprain/Strain: No Acute Post-op Mobility Dysfunction: No Total Points: 5 PT Screen per Nursing Assess ONCE Comment: Protocol Order Physician Instructions: Greater than 3 points order PT Admission Screenin Reason For Exam: Triggered on Admission Diagnosis: JESSICA Open Wound/Cellutlitis/Pressure Ulcers: No Acute Fx/ORIF/Change in wt bearing status: No Severe MUSCULOSKELETAL pain: Yes: with spasms ADL Dysfunction: No Acute CVA w/Hemiparesis/Hemiplegia: No Decreased Functional Mobility/Strength: No Sprain/Strain: No Acute Post-op Mobility Dysfunction: No Total Points: 5 Smoking Cessation Education ONCE Comment: Diagnosis: JESSICA Smoking Status: Current every day smoker How long have you smoked: "40 years" Have you smoked in the past 12 months: Yes Approximately how many cigarettes per day: 20 Do you dip or chew tobacco: No ST Screen per Nursing Assess ONCE Comment: Protocol Order Physician Instructions: Greater than [address] Admission Screening Reason For Exam: Triggered on Admission Diagnosis: JESSICA CVA/Dysphagia/Aphasia: No Cognitive Deficits: No Dehydration/Nutrition Deficit: Yes Reflux: No Oral-Motor Difficulties: No Pneumonia: No Skilled Nursing Resident: No Total Points: 5 Discharge Exam General Appearance: no apparent distress, alert, obese Neurologic Exam: alert, oriented x 3, cooperative, normal mood/affect, nml cerebellar function, sensation nml, No motor deficits Eye Exam: PERRL, EOMI, eyes nml inspection Ears, Nose, Throat Exam: normal ENT inspection, pharynx normal, moist mucous membranes Neck Exam: normal inspection, non-tender, supple, full range of motion Respiratory Exam: normal breath sounds, lungs clear, No respiratory distress Cardiovascular Exam: regular rate/rhythm, normal heart sounds Gastrointestinal/Abdomen Exam: soft, No tenderness, No mass Pelvic Exam: deferred Rectal Exam: deferred Back Exam: normal inspection, normal range of motion, No CVA tenderness, No vertebral tenderness Extremity Exam: normal inspection, normal range of motion Skin Exam: normal color, warm, dry Final Diagnosis/Problem List - Final Discharge Diagnosis/Problem (1) UTI (urinary tract infection) Current Visit: Yes Status: Acute Assessment & Plan: - IVF - Ceftriaxone - CBC, CMP reviewed - UC and BC x2 pending- will continue to follow OP Code(s): N39.0 - URINARY TRACT INFECTION, SITE NOT SPECIFIED (2) JESSICA (acute kidney injury) Current Visit: Yes Status: Acute Assessment & Plan: - Creat 2.24- improving since admission, unknown baseline- will need repeat labs with PCP - IVF - Does not follow nephrology OP - Lasix held- will hold and PCP to decide when to restart - CBC, CMP reviewed Code(s): N17.9 - ACUTE KIDNEY FAILURE, UNSPECIFIED (3) Tachycardia Current Visit: Yes Status: Acute Assessment & Plan: - Improved today - Since + drug use hx Echo ordered - Pt to f/u OP for results with PCP as cardiology has 48 hours to read report Code(s): R00.0 - TACHYCARDIA, UNSPECIFIED (4) SIRS (systemic inflammatory response syndrome) Current Visit: Yes Status: Acute Assessment & Plan: tachycardia and leukocytosis- resolved - NS @ 125 ml/hr - Monitor vital signs, WBC, and temperature trends - Repeat lactate after resuscitation - received 500ml bolus in ED - Inital LA 4.5, repeat LA 2.0 - + UDS for amphetamines and opiates - per [facility] report these meds are not prescribed to her. She denies use despite UDS findings. - UA + for UTI- Ceftriaxone started- UC pending - UA reviewed- UC pending - CXR - reviewed - CT abdomen and pelvis revealed mild fatty hepatomegaly with a high-density focus in hepatic segment 4, suggestive of focal fatty sparing; MRI with T1 in/out of phase was recommended for correlation. Colonic diverticulosis was noted without evidence of active inflammation. No acute intra-abdominal or infectious process was identified. - Blood cultures x 2 - pending - Procal elevated at 0.350 Code(s): R65.10 - SIRS OF NON-INFECTIOUS ORIGIN W/O ACUTE ORGAN DYSFUNCTION (5) Hyponatremia Current Visit: Yes Status: Acute Assessment & Plan: - Corrected sodium 131- mild- hyponatremia - Continue IVF Code(s): E87.1 - HYPO-OSMOLALITY AND HYPONATREMIA (6) Transaminitis Current Visit: Yes Status: Acute Assessment & Plan: - AST 85, ALT 46- improving - Will need need OP f/u with repeat labs by PCP Code(s): R74.01 - ELEVATION OF LEVELS OF LIVER TRANSAMINASE LEVELS (7) Drug use Current Visit: Yes Status: Acute Assessment & Plan: - UDS + for opiates and Amphetamines - Pt denies any drug use although UDS + Code(s): F19.90 - OTHER PSYCHOACTIVE SUBSTANCE USE, UNSPECIFIED, UNCOMPLICATED (8) COPD (chronic obstructive pulmonary disease) Current Visit: Yes Status: Chronic Assessment & Plan: - Not in acute exacerbation -Continue home inhalers (long-acting bronchodilator inhaled corticosteroid) -Encourage pulmonary hygiene and smoking cessation counseling -Monitor oxygen saturation and symptoms during admission -RA at baseline - CXR: Portable chest demonstrates minimal lingula subsegmental atelectasis/scarring. Remaining heart and lungs unremarkable. Bony thorax intact. No acute findings. (9) DMII (diabetes mellitus, type 2) Current Visit: Yes Status: Chronic Assessment & Plan: - Hgb A1C 9.19- uncontrolled type II DM - Accuchecks AC/HS - Humalog s/s, Lantus and scheduled humalog with meals - CBC, CMP reviewed (10) Fatty liver Current Visit: Yes Status: Chronic Assessment & Plan: - As seen on CT abd: 1. Mild fatty hepatomegaly with an area/patch of high density at segment IV, which could be focal fatty sparing; T1 in and out of phase MRI correlation is recommended. 2. Colonic diverticulosis with no signs of inflammation. - Will need OP f/u regarding findings above by PCP- unable to do since pt wants to sign out AMA Code(s): K76.0 - FATTY (CHANGE OF) LIVER, NOT ELSEWHERE CLASSIFIED (11) HTN (hypertension) Current Visit: Yes Status: Resolved Assessment & Plan: - BP stable - Continue home BP meds Code(s): I10 - ESSENTIAL (PRIMARY) HYPERTENSION (12) Smoker Current Visit: Yes Status: Chronic Assessment & Plan: - 1PPD smoker, advised cessation- nicotine patch - Education provided and 1800QUIT now Code(s): F17.200 - NICOTINE DEPENDENCE, UNSPECIFIED, UNCOMPLICATED (13) Morbid obesity with BMI of 50.0-59.9, adult Current Visit: Yes Status: Chronic Assessment & Plan: - Advised ADA diet and exercise control Code(s): E66.01 - MORBID (SEVERE) OBESITY DUE TO EXCESS CALORIES; Z68.43 - BODY MASS INDEX [BMI] 50.0-59.9, ADULT (14) High anion gap metabolic acidosis Current Visit: Yes Status: Resolved Assessment & Plan: - resolved Code(s): E87.29 - OTHER ACIDOSIS (15) Lactic acid acidosis Current Visit: Yes Status: Resolved Assessment & Plan: - Resolved after IVF- Repeat LA 2.0 Code(s): E87.20 - ACIDOSIS, UNSPECIFIED (16) Muscle cramps Current Visit: Yes Status: Resolved Assessment & Plan: - Resolved today - Secondary to electrolyte imbalance and volume depletion from diuretic use - Pain relieving rub D/C med: Cefuroxime D/C plan of care time > 33 minutes Code(s): R25.2 - CRAMP AND SPASM - Discharge Discharge Date: 09/16/25 Disposition: Home, Self-Care Condition: Fair Prescriptions: Continue Metoprolol Succinate 50 mg [Toprol Xl 50 MG] 50 mg PO HS Metformin HCl 500 mg [Glucophage 500 MG] 500 mg PO EVENING MEAL Insulin Lispro [Insulin Lispro Kwikpen U-100] See Rx Instructions .ROUTE .COMPLEX Losartan Potassium [Cozaar] 100 mg PO EVENING MEAL Ipratropium/Albuterol Sulfate [Iprat-Albut 0.5-3(2.5) mg/3 ml] 3 ml IH Q6HPRN PRN PRN Reason: Shortness Of Breath/Wheezing Albuterol Common Canister [Ventolin Common Canister] 2 puff IH Q4HPRN PRN PRN Reason: Shortness Of Breath/Wheezing Discontinued Potassium Chloride [Klor-Con M20] 20 meq PO BID Furosemide 40 mg [Lasix 40 MG] 40 mg PO BID Instructions: Urinary tract infections in adults, Acute kidney injury Follow up with: JB MONACO [Primary Care Provider, [facility]] - 09/26/25 1:00 pm
[2025-09-16] MEDS: Protonix 40MG Tablet PO SCH (10:52)
[2025-09-16 11:51] VITALS: BP 137/67; TEMP 98.5
[2025-09-16 12:45] VITALS: PULSE 113; RESP 20; O2SAT 90
[2025-09-16] MEDS ORDERED: ROCEPHIN 1 GM / 100 ML NaCl 1 GM/100 ML IVPB IV SCH (22:00)
== END 2025-09-16 14:05 | disposition home or self-care (01) ==
LOC: ED 11:33 → MED SURG 16:00
PROVIDERS: ADMIT Internal Medicine; ATTEND Internal Medicine
DX: N39.0 Urinary tract infection, site not specified (principal); N17.9 Acute kidney failure, unspecified; R00.0 Tachycardia, unspecified; R65.10 Systemic inflammatory response syndrome (SIRS) of non-infectious origin without acute organ dysfunction; E87.1 Hypo-osmolality and hyponatremia; R74.01 Elevation of levels of liver transaminase levels; F19.90 Other psychoactive substance use, unspecified, uncomplicated; E11.9 Type 2 diabetes mellitus without complications; K76.0 Fatty (change of) liver, not elsewhere classified; I10 Essential (primary) hypertension; F17.200 Nicotine dependence, unspecified, uncomplicated; E66.01 Morbid (severe) obesity due to excess calories; Z68.43 Body mass index [BMI] 50.0-59.9, adult; E87.29 Other acidosis; E87.20 Acidosis, unspecified; R25.2 Cramp and spasm; J44.9 Chronic obstructive pulmonary disease, unspecified; R60.0 Localized edema; Z79.899 Other long term (current) drug therapy